=== PATIENT | female | born 1970 | race Caucasian/White ===

== ENCOUNTER 2022-12-17 09:45 | Inpatient (IN) | payer OTHER ==
[2022-12-17 10:16] VITALS: BMI 43.2
[2022-12-17] MEDS ORDERED: IBUPROFEN 600 MG TABLET (FP) PO PRN (10:48)
[2022-12-17] MEDS ORDERED: MAGNESIUM HYDROX 2400MG/30ML ORAL SUSPENSION 30 ML CUP PO PRN (10:48)
[2022-12-17] MEDS ORDERED: DICYCLOMINE HCL 10 MG CAPSULE PO PRN (10:48)
[2022-12-17] MEDS ORDERED: BISMUTH SUBSALICYLATE 524 MG/30 ML PO PRN (10:48)
[2022-12-17] MEDS ORDERED: LOPERAMIDE HCL 2 MG CAPSULE PO PRN (10:48)
[2022-12-17] MEDS ORDERED: POLYETHYLENE GLYCOL (HEALTHYLAX) 3350 17 GM PACKET PO PRN (10:48)
[2022-12-17] MEDS ORDERED: IBUPROFEN 400 MG TABLET (FP) PO PRN (10:48)
[2022-12-17] MEDS ORDERED: guaiFENesin 600 MG TABLET.ER (FP) PO PRN (10:48)
[2022-12-17] MEDS ORDERED: BENZOCAINE/MENTHOL (CHLORASEPTIC ) LOZENGE MM PRN (10:48)
[2022-12-17] MEDS ORDERED: NALOXONE HCL 0.4 MG/ML VIAL IM PRN (10:48)
[2022-12-17] MEDS ORDERED: MAG HYDROX/AL HYDROX/SIMETH 30 ML UNIT-DOSE CUP PO PRN (10:48)
[2022-12-17] MEDS ORDERED: METHOCARBAMOL 500 MG TABLET PO PRN (10:48)
[2022-12-17] MEDS ORDERED: ACETAMINOPHEN 325 MG TABLET (FP) PO PRN (10:48)
[2022-12-17] MEDS ORDERED: BENZONATATE 200 MG CAPSULE PO PRN (10:48)
[2022-12-17] MEDS ORDERED: AMMONIUM LACTATE 12% LOTION 225 GM BOTTLE TP PRN (10:48)
[2022-12-17] MEDS ORDERED: NICOTINE 10 MG CARTRIDGE (INHALER) IH PRN (10:48)
[2022-12-17] MEDS ORDERED: ONDANSETRON *ODT* 4 MG TABLET SL PRN (10:48)
[2022-12-17] MEDS ORDERED: NALOXONE HCL (KLOXXADO) 8 MG SPRAY NS PRN (10:48)
[2022-12-17] MEDS ORDERED: COLLOIDAL OATMEAL 1 BAR EACH TP PRN (10:48)
[2022-12-17] MEDS ORDERED: LORazepam 2 MG TABLET ONE (11:12)
[2022-12-17] MEDS ORDERED: METOPROLOL TARTRATE 25 MG TABLET (FP) ONE (11:12)
[2022-12-17] MEDS: METOPROLOL TARTRATE 50 MG TABLET (FP) PO SCH (11:16)
[2022-12-17] MEDS: LORazepam 2 MG TABLET PO SCH ×3 (11:17→22:16)
[2022-12-17 16:50] VITALS: RESP 18
[2022-12-17 17:14] LABS: HEMATOCRIT 30.7 % (32.4-45.2); HEMOGLOBIN 10.1 GM/dL (10.7-15.3); MCH 22.7 pg (25.7-33.7); MEAN CELL VOLUME 68.9 fl (80-96); MEAN PLT VOLUME 9.6 fl (7.5-11.1); PLATELET COUNT 178 10^3/uL (134-434); RBC 4.45 M/mm3 (3.60-5.2); RDW 22.6 % (11.6-15.6); WHITE BLOOD COUNT 4.5 K/mm3 (4.0-10.0)
[2022-12-17 18:58] LABS: POTASSIUM 3.3 mmol/L (3.5-5.1)
[2022-12-17 19:00] LABS: ALBUMIN 3.3 g/dl (3.4-5.0); BLOOD UREA NITROGEN 5.3 mg/dL (7-18); CALCIUM 8.2 mg/dL (8.5-10.1)
[2022-12-17 19:03] LABS: CREATININE 0.7 mg/dL (0.55-1.3)
[2022-12-17 19:05] LABS: BILIRUBIN,TOTAL 0.8 mg/dL (0.2-1); TOT PROT 7.1 g/dl (6.4-8.2)
[2022-12-17] MEDS ORDERED: MELATONIN 5 MG TABLETS PO SCH (22:00)
[2022-12-17] MEDS ORDERED: THIAMINE HCL 100 MG TABLET (FP) PO SCH (22:00)
[2022-12-18] MEDS: LORazepam 2 MG TABLET PO SCH ×2 (05:44→10:19)
[2022-12-18] MEDS ORDERED: PRENATAL VITAMINS W/ FOLIC ACID TABLET (FP) PO SCH (10:00)
[2022-12-18] MEDS: METOPROLOL TARTRATE 50 MG TABLET (FP) PO SCH (10:19)
[2022-12-18 13:48] VITALS: BP 140/95; PULSE 81; TEMP 97.7
[2022-12-19] MEDS ORDERED: LORazepam 1 MG TABLET PO SCH (05:00)
[2022-12-20] MEDS ORDERED: LORazepam 0.5 MG TABLET PO SCH (05:00)
[2022-12-21] MEDS ORDERED: LORazepam 0.5 MG TABLET PO ONE (05:00)
== END 2022-12-18 14:01 | disposition left against medical advice (07) | DRG 770 ==
LOC: YASAS 09:45 → Y6N 10:57
PROVIDERS: ADMIT Allergy & Immunology; ATTEND Surgery
PROC: HZ2ZZZZ Detoxification Services for Substance Abuse Treatment (ICD-10-PCS; principal; 2022-12-17)
DX: F10.230 Alcohol dependence with withdrawal, uncomplicated (principal); I10 Essential (primary) hypertension; E05.90 Thyrotoxicosis, unspecified without thyrotoxic crisis or storm; E66.01 Morbid (severe) obesity due to excess calories; Z68.41 Body mass index [BMI] 40.0-44.9, adult; Z87.891 Personal history of nicotine dependence
CPT/HCPCS: 36415; 80053; 81025; 82140; 85027; 86780; C9803-CS; U0003; U0005

== ENCOUNTER 2023-01-21 14:10 | Inpatient (IN) | payer OTHER ==
[2023-01-21 15:27] VITALS: BMI 43.2
[2023-01-21] MEDS ORDERED: IBUPROFEN 600 MG TABLET (FP) PO PRN (18:52)
[2023-01-21] MEDS ORDERED: NALOXONE HCL 0.4 MG/ML VIAL IM PRN (18:52)
[2023-01-21] MEDS ORDERED: guaiFENesin 600 MG TABLET.ER (FP) PO PRN (18:52)
[2023-01-21] MEDS ORDERED: BENZONATATE 200 MG CAPSULE PO PRN (18:52)
[2023-01-21] MEDS ORDERED: BISMUTH SUBSALICYLATE 524 MG/30 ML PO PRN (18:52)
[2023-01-21] MEDS ORDERED: MAGNESIUM HYDROX 2400MG/30ML ORAL SUSPENSION 30 ML CUP PO PRN (18:52)
[2023-01-21] MEDS ORDERED: NALOXONE HCL (KLOXXADO) 8 MG SPRAY NS PRN (18:52)
[2023-01-21] MEDS ORDERED: LOPERAMIDE HCL 2 MG CAPSULE PO PRN (18:52)
[2023-01-21] MEDS ORDERED: DICYCLOMINE HCL 10 MG CAPSULE PO PRN (18:52)
[2023-01-21] MEDS ORDERED: IBUPROFEN 400 MG TABLET (FP) PO PRN (18:52)
[2023-01-21] MEDS ORDERED: BENZOCAINE/MENTHOL (CHLORASEPTIC ) LOZENGE MM PRN (18:52)
[2023-01-21] MEDS ORDERED: chlordiazePOXIDE HCL 25 MG CAPSULE PO PRN (18:52)
[2023-01-21] MEDS ORDERED: MAG HYDROX/AL HYDROX/SIMETH 30 ML UNIT-DOSE CUP PO PRN (18:52)
[2023-01-21] MEDS ORDERED: POLYETHYLENE GLYCOL (HEALTHYLAX) 3350 17 GM PACKET PO PRN (18:52)
[2023-01-21] MEDS ORDERED: ACETAMINOPHEN 325 MG TABLET (FP) PO PRN (18:52)
[2023-01-21] MEDS ORDERED: ONDANSETRON *ODT* 4 MG TABLET SL PRN (18:52)
[2023-01-21] MEDS ORDERED: LORazepam 2 MG/ML SDV VIAL IM ONE (19:15)
[2023-01-21] MEDS: THIAMINE HCL 100 MG TABLET (FP) PO SCH (22:13)
[2023-01-21] MEDS: MELATONIN 5 MG TABLETS PO SCH (22:13)
[2023-01-21] MEDS: hydrOXYzine PAMOATE 25 MG CAPSULE (FP) PO PRN (22:13)
[2023-01-21] MEDS: METHOCARBAMOL 500 MG TABLET PO PRN (22:14)
[2023-01-21] MEDS: chlordiazePOXIDE HCL 25 MG CAPSULE PO SCH (22:16)
[2023-01-22] MEDS: chlordiazePOXIDE HCL 25 MG CAPSULE PO SCH ×4 (05:53→22:09)
[2023-01-22] MEDS: PRENATAL VITAMINS W/ FOLIC ACID TABLET (FP) PO SCH (10:13)
[2023-01-22] MEDS: METOPROLOL TARTRATE 50 MG TABLET (FP) PO SCH (10:13)
[2023-01-22] MEDS: METHOCARBAMOL 500 MG TABLET PO PRN ×2 (10:14→22:11)
[2023-01-22] MEDS ORDERED: METHIMAZOLE 5 MG TABLET PO SCH (11:15)
[2023-01-22 13:28] LABS: HEMATOCRIT 32.3 % (32.4-45.2); HEMOGLOBIN 10.6 GM/dL (10.7-15.3); MCH 22.6 pg (25.7-33.7); MCHC 32.7 g/dl (32.0-36.0); MEAN CELL VOLUME 69.1 fl (80-96); MEAN PLT VOLUME 9.2 fl (7.5-11.1); PLATELET COUNT 206 10^3/uL (134-434); RBC 4.68 M/mm3 (3.60-5.2); RDW 24.5 % (11.6-15.6); WHITE BLOOD COUNT 6.1 K/mm3 (4.0-10.0)
[2023-01-22] MEDS ORDERED: METHIMAZOLE 5 MG TABLET PO ONE (13:41)
[2023-01-22 14:26] LABS: POTASSIUM 3.2 mmol/L (3.5-5.1)
[2023-01-22 14:35] LABS: ALBUMIN 3.2 g/dl (3.4-5.0); CALCIUM 8.1 mg/dL (8.5-10.1)
[2023-01-22 14:36] LABS: BLOOD UREA NITROGEN 5.4 mg/dL (7-18)
[2023-01-22 14:39] LABS: CREATININE 0.7 mg/dL (0.55-1.3)
[2023-01-22] MEDS ORDERED: POTASSIUM CHLORIDE ORAL LIQUID 20 MEQ/15 ML PO ONE (15:22)
[2023-01-22] MEDS: MELATONIN 5 MG TABLETS PO SCH (22:09)
[2023-01-22] MEDS: THIAMINE HCL 100 MG TABLET (FP) PO SCH (22:09)
[2023-01-23] MEDS: chlordiazePOXIDE HCL 25 MG CAPSULE PO SCH ×4 (05:26→22:13)
[2023-01-23] MEDS: METOPROLOL TARTRATE 50 MG TABLET (FP) PO SCH (10:06)
[2023-01-23] MEDS: PRENATAL VITAMINS W/ FOLIC ACID TABLET (FP) PO SCH (10:06)
[2023-01-23] MEDS: METHIMAZOLE 5 MG TABLET PO SCH (10:08)
[2023-01-23] MEDS: THIAMINE HCL 100 MG TABLET (FP) PO SCH (22:13)
[2023-01-23] MEDS: MELATONIN 5 MG TABLETS PO SCH (22:13)
[2023-01-23] MEDS: METHOCARBAMOL 500 MG TABLET PO PRN (22:14)
[2023-01-24] MEDS ORDERED: chlordiazePOXIDE HCL 10 MG CAPSULE PO PRN
[2023-01-24] MEDS: chlordiazePOXIDE HCL 10 MG CAPSULE PO SCH ×4 (05:57→22:23)
[2023-01-24] MEDS: PRENATAL VITAMINS W/ FOLIC ACID TABLET (FP) PO SCH (10:09)
[2023-01-24] MEDS: METHIMAZOLE 5 MG TABLET PO SCH (10:09)
[2023-01-24] MEDS: METOPROLOL TARTRATE 50 MG TABLET (FP) PO SCH (10:09)
[2023-01-24] MEDS: THIAMINE HCL 100 MG TABLET (FP) PO SCH (22:23)
[2023-01-24] MEDS: METHOCARBAMOL 500 MG TABLET PO PRN (22:23)
[2023-01-24] MEDS: MELATONIN 5 MG TABLETS PO SCH (22:24)
[2023-01-25] MEDS: chlordiazePOXIDE HCL 10 MG CAPSULE PO SCH ×2 (05:48→17:43)
[2023-01-25] MEDS: METOPROLOL TARTRATE 50 MG TABLET (FP) PO SCH (10:30)
[2023-01-25] MEDS: METHIMAZOLE 5 MG TABLET PO SCH (10:31)
[2023-01-25] MEDS: PRENATAL VITAMINS W/ FOLIC ACID TABLET (FP) PO SCH (10:31)
[2023-01-25] MEDS ORDERED: METOPROLOL TARTRATE 25 MG TABLET (FP) PO ONE (10:36)
[2023-01-25] MEDS: METHOCARBAMOL 500 MG TABLET PO PRN (21:28)
[2023-01-25] MEDS: THIAMINE HCL 100 MG TABLET (FP) PO SCH (21:28)
[2023-01-25] MEDS: hydrOXYzine PAMOATE 25 MG CAPSULE (FP) PO PRN (21:28)
[2023-01-25] MEDS: MELATONIN 5 MG TABLETS PO SCH (21:28)
[2023-01-26] MEDS ORDERED: chlordiazePOXIDE HCL 10 MG CAPSULE PO ONE (05:00)
[2023-01-26] MEDS: PRENATAL VITAMINS W/ FOLIC ACID TABLET (FP) PO SCH (11:33)
[2023-01-26] MEDS: METHIMAZOLE 5 MG TABLET PO SCH (11:33)
[2023-01-26] MEDS: METOPROLOL TARTRATE 50 MG TABLET (FP) PO SCH (11:33)
[2023-01-26] MEDS: FERROUS SO4 325 MG TABLET (FP) PO SCH (14:13)
[2023-01-26] MEDS: DOCUSATE SODIUM 100 MG CAPSULE (FP) PO SCH (21:40)
[2023-01-26] MEDS: METHOCARBAMOL 500 MG TABLET PO PRN (21:41)
[2023-01-26] MEDS: MELATONIN 5 MG TABLETS PO SCH (21:41)
[2023-01-26] MEDS: THIAMINE HCL 100 MG TABLET (FP) PO SCH (21:41)
[2023-01-27] MEDS: FERROUS SO4 325 MG TABLET (FP) PO SCH (11:01)
[2023-01-27] MEDS: PRENATAL VITAMINS W/ FOLIC ACID TABLET (FP) PO SCH (11:01)
[2023-01-27] MEDS: METHIMAZOLE 5 MG TABLET PO SCH (11:02)
[2023-01-27] MEDS: METOPROLOL TARTRATE 50 MG TABLET (FP) PO SCH (11:03)
[2023-01-27] MEDS: THIAMINE HCL 100 MG TABLET (FP) PO SCH (21:57)
[2023-01-27] MEDS: DOCUSATE SODIUM 100 MG CAPSULE (FP) PO SCH (21:57)
[2023-01-27] MEDS: MELATONIN 5 MG TABLETS PO SCH (21:57)
[2023-01-27] MEDS: hydrOXYzine PAMOATE 25 MG CAPSULE (FP) PO PRN (21:57)
[2023-01-28] MEDS: METHIMAZOLE 5 MG TABLET PO SCH (10:00)
[2023-01-28] MEDS: FERROUS SO4 325 MG TABLET (FP) PO SCH (10:00)
[2023-01-28] MEDS: PRENATAL VITAMINS W/ FOLIC ACID TABLET (FP) PO SCH (10:00)
[2023-01-28] MEDS: METOPROLOL TARTRATE 50 MG TABLET (FP) PO SCH (10:00)
[2023-01-28] MEDS: DOCUSATE SODIUM 100 MG CAPSULE (FP) PO SCH (21:19)
[2023-01-28] MEDS: MELATONIN 5 MG TABLETS PO SCH (21:19)
[2023-01-28] MEDS: hydrOXYzine PAMOATE 25 MG CAPSULE (FP) PO PRN (21:20)
[2023-01-28] MEDS: THIAMINE HCL 100 MG TABLET (FP) PO SCH (22:19)
[2023-01-29] MEDS: METOPROLOL TARTRATE 50 MG TABLET (FP) PO SCH (10:32)
[2023-01-29] MEDS: FERROUS SO4 325 MG TABLET (FP) PO SCH (10:32)
[2023-01-29] MEDS: PRENATAL VITAMINS W/ FOLIC ACID TABLET (FP) PO SCH (10:32)
[2023-01-29] MEDS: METHIMAZOLE 5 MG TABLET PO SCH (10:33)
[2023-01-29] MEDS: hydrOXYzine PAMOATE 25 MG CAPSULE (FP) PO PRN (22:25)
[2023-01-29] MEDS: THIAMINE HCL 100 MG TABLET (FP) PO SCH (22:25)
[2023-01-29] MEDS: DOCUSATE SODIUM 100 MG CAPSULE (FP) PO SCH (22:25)
[2023-01-29] MEDS: MELATONIN 5 MG TABLETS PO SCH (22:25)
[2023-01-30] MEDS: METOPROLOL TARTRATE 50 MG TABLET (FP) PO SCH (10:01)
[2023-01-30] MEDS: PRENATAL VITAMINS W/ FOLIC ACID TABLET (FP) PO SCH (10:01)
[2023-01-30] MEDS: FERROUS SO4 325 MG TABLET (FP) PO SCH (10:01)
[2023-01-30] MEDS: METHIMAZOLE 5 MG TABLET PO SCH (10:02)
[2023-01-30] MEDS: THIAMINE HCL 100 MG TABLET (FP) PO SCH (22:41)
[2023-01-30] MEDS: DOCUSATE SODIUM 100 MG CAPSULE (FP) PO SCH (22:41)
[2023-01-30] MEDS: MELATONIN 5 MG TABLETS PO SCH (22:41)
[2023-01-30] MEDS: hydrOXYzine PAMOATE 25 MG CAPSULE (FP) PO PRN (22:42)
[2023-01-31] MEDS: METOPROLOL TARTRATE 50 MG TABLET (FP) PO SCH (09:58)
[2023-01-31] MEDS: PRENATAL VITAMINS W/ FOLIC ACID TABLET (FP) PO SCH (09:58)
[2023-01-31] MEDS: FERROUS SO4 325 MG TABLET (FP) PO SCH (09:58)
[2023-01-31] MEDS: METHIMAZOLE 5 MG TABLET PO SCH (09:59)
[2023-01-31] MEDS: DOCUSATE SODIUM 100 MG CAPSULE (FP) PO SCH (23:18)
[2023-01-31] MEDS: THIAMINE HCL 100 MG TABLET (FP) PO SCH (23:19)
[2023-01-31] MEDS: MELATONIN 5 MG TABLETS PO SCH (23:19)
[2023-01-31] MEDS: hydrOXYzine PAMOATE 25 MG CAPSULE (FP) PO PRN (23:20)
[2023-02-01 07:08] VITALS: RESP 16
[2023-02-01] MEDS: PRENATAL VITAMINS W/ FOLIC ACID TABLET (FP) PO SCH (09:25)
[2023-02-01] MEDS: FERROUS SO4 325 MG TABLET (FP) PO SCH (09:25)
[2023-02-01] MEDS: METHIMAZOLE 5 MG TABLET PO SCH (09:25)
[2023-02-01] MEDS: METOPROLOL TARTRATE 50 MG TABLET (FP) PO SCH (09:25)
[2023-02-01 09:32] VITALS: BP 112/77; PULSE 103; TEMP 97.5
== END 2023-02-01 12:00 | disposition home or self-care (01) | DRG 775 ==
LOC: YASAS 14:10 → Y3N 19:39
PROVIDERS: ADMIT Allergy & Immunology; ATTEND Surgery
PROC: HZ2ZZZZ Detoxification Services for Substance Abuse Treatment (ICD-10-PCS; principal; 2023-01-21)
DX: F10.230 Alcohol dependence with withdrawal, uncomplicated (principal); U07.1 COVID-19; D64.9 Anemia, unspecified; I10 Essential (primary) hypertension; E05.90 Thyrotoxicosis, unspecified without thyrotoxic crisis or storm; Z87.891 Personal history of nicotine dependence
CPT/HCPCS: 36415; 80053; 81025; 84132; 85027; 86780; 87635; 87811; Q0162